=== PATIENT | female | born 1990 | race Caucasian/White ===

== ENCOUNTER 2023-11-02 11:45 | Outpatient (CLI) | payer OTHER ==
--- NOTE | 2023-11-04 15:36 | XRAY Report ---
PROCEDURE: Wrist 1-2V RT INDICATIONS: PAIN IN RIGHT WRIST TECHNIQUE: 2 views of the wrist were acquired. COMPARISON: None FINDINGS: Bones: No fractures or dislocations. No suspicious bony lesions. Soft tissues: No suspicious soft tissue calcifications or masses. IMPRESSION: Unremarkable wrist radiographs Reviewed by: Gabriel Odonnell MD on 11/04/2023 2:34 PM AKDT Approved by: Gabriel Odonnell MD on 11/04/2023 2:34 PM AKDT Station ID: [id number]
== END 2023-11-02 12:00 | disposition home or self-care (01) ==
LOC: DI.N 11:45
PROVIDERS: ATTEND Nurse Practitioner
DX: M25.531 Pain in right wrist (principal)